=== PATIENT | male | born 1950 | race Caucasian/White ===

== ENCOUNTER 2017-07-01 04:11 | Inpatient (IN) | payer MEDICARE ==
[2017-07-01] MEDS ORDERED: LEVOFLOXACIN/D5W 750 MG/150 ML BAG IV ONE (04:20)
[2017-07-01] MEDS: RINGER'S SOLUTION,LACTATED 1,000 ML IV PRN ×5 (04:36→18:36)
--- NOTE | 2017-07-01 08:10 | HP ---
Chief Complaint - Chief Complaint Date of Service: 07/01/17 Time of Service: 08:05 Chief Complaint: RLQ abdominal pain History of Present Illness: Onset of RLQ abdominal pain saturday with progression. WBC 14K and CT c/w perforated appendicitis. Transferred from [place] to our facility for definitive treatment. - Patient's Past Medical History Patient History - Medical: No pertinent hx Patient History - Cardiac/Respiratory: Hyperlipidemia Patient History - Cancer: No Hx of Cancer Patient History - Surgical Procedures: T & A Patient History - Other: None - Family History Father Family History - Cardiac/Respiratory: CHF - Social History Living Situations: home Abuse History: No History of abuse Psych History: No pertinent hx Smoking Status: Former smoker Have you smoked in the past 12 months: No Do you dip or chew tobacco: No Alcohol Use: none Drug Use: none - Immunizations Immunizations Up to Date: Yes Hx Pneumococcal Vaccination: No History of Influenza Vaccine: No Review Of Systems (GEN) - Review of Systems Misc: All systems neg except as marked Immunizations: IMMUNIZATION HX Immunizations Up to Date Yes History of Influenza Vaccine No Hx Pneumococcal Vaccination No Allergies/Adverse Reactions: Allergies Allergy/AdvReac Type Severity Reaction Status Date / Time No Known Allergies Allergy Unverified 07/01/17 05:11 Home Medications: HOME MEDICATIONS Aspirin 81 mg PO DAILY 07/01/17 [Last Taken Unknown] Atorvastatin Calcium 10 mg PO DAILY 07/01/17 [Last Taken Unknown] Ibuprofen 200 mg PO DAILY 07/01/17 [Last Taken Unknown] Exam - Exam Vital Signs: Vital Signs - Last Taken Temp 37.8 C H 07/01/17 07:27 Pulse 94 07/01/17 07:27 Resp 15 07/01/17 07:27 BP 86/56 07/01/17 07:27 Pulse Ox 97 07/01/17 07:27 Constitutional: Present: Alert, Oriented x3, Cooperative, Well developed, Well nourished, No distress ENT Exam: Present: normal ENT inspection Eye Exam: bilateral eye: normal inspection Neck: Present: normal inspection Respiratory: Present: normal breath sounds, no respiratory distress, no accessory muscle use Cardiovascular/Chest: Present: regular rate, rhythm, no murmur Abdomen: Present: Normal bowel sounds, soft, other - RLQ tender Extremity: Present: normal inspection Skin Exam: Present: normal color, warm/dry Neurologic: Present: no motor/sensory deficits Eye contact: Present: cooperative Thoughts: Present: normal thought pattern Assessment/Plan - Narrative Narrative: A: Acute appendicitis, probable perforation P: Laparoscopic appendectomy. The options, risks, and benefits were reviewed fully. He seems to understand, asks appropriate questions, and desires to proceed. - Assessment/Plan (1) Acute appendicitis Problem: Acute
[2017-07-01] MEDS ORDERED: RINGER'S SOLUTION,LACTATED 1,000 ML IV ONE (08:25)
[2017-07-01] MEDS ORDERED: BUPIVACAINE HCL/EPINEPHRINE 50 ML VIAL IJ ONE ×2 (09:00)
[2017-07-01] MEDS ORDERED: MORPHINE SULFATE 2 MG/ML DISP.SYRIN IV PRN (11:26)
[2017-07-01] MEDS: metroNIDAZOLE/SODIUM CHLORIDE 500 MG/100 ML BAG IV SCH ×2 (12:05→20:07)
--- NOTE | 2017-07-01 12:14 | OR ---
Operative Report - Dictated Report Narrative: Date: 07/01/2017 Preop dx: perforated appendicitis Postop dx: same Procedure: laparoscopic appendectomy Surgeon: Cayden Arrington MD Asst surgeon: Ramy Cedillo, M3 EBL: minimal Specimen: appendix Anesthesia: GETA Drains: none Complications: none apparent Description: Pt was placed in the supine position and following the smooth induction of GETA a villatoro catheter was inserted and the abdomen was prepped and draped in a sterile fashion. All port sites were anesthetized with marcaine prior to incision. A supraumbilical incision was carried out and dissection taken down to an umbilical hernia. Contents were amputated and 5mm port inserted through the defect. The abdomen was insufflated to a pressure of 15 mmHg with carbon dioxide. Purulence was noted in the pelvis. A 12mm suprapubic and 5mm LLQ ports were inserted under direct vision. Omentum was peeled off the RLQ revealing a perforated appendix. The mesoappendix was taken down in continuity with a thunderbeat. The appendix was amputated at its base with an endoGIA. Appendix was placed in an endocatch bag and delivered through the suprapubic port. The RLQ and pelvis were copiously irrigated and the irrigant was evacuated and running clear. Hemostasis appeared to be adequate. The pneumoperitoneum was evacuated. Ports were removed. The umbilical port site was closed with a figure of eight 0-Vicryl suture. The incisions were closed with katarina. Island dressings were applied. The patient tolerated the procedure well without apparent complications and was discharged from the OR in stable condition.
[2017-07-01] MEDS: LEVOFLOXACIN/D5W 750 MG/150 ML BAG IV SCH (13:13)
[2017-07-01] MEDS: oxyCODONE HCL/ACETAMINOPHEN 1 TAB TABLET PO PRN ×2 (16:57→22:04)
[2017-07-02] MEDS: metroNIDAZOLE/SODIUM CHLORIDE 500 MG/100 ML BAG IV SCH ×3 (03:25→19:49)
[2017-07-02] MEDS: RINGER'S SOLUTION,LACTATED 1,000 ML IV PRN ×2 (03:26→19:49)
[2017-07-02] MEDS: oxyCODONE HCL/ACETAMINOPHEN 1 TAB TABLET PO PRN ×2 (08:52→16:37)
[2017-07-02] MEDS: ONDANSETRON HCL/PF 2 MG/ML VIAL IV PRN ×2 (12:42→20:44)
[2017-07-02] MEDS: LEVOFLOXACIN/D5W 750 MG/150 ML BAG IV SCH (13:51)
--- NOTE | 2017-07-02 16:32 | PN ---
Subjective - Date and Time Seen Date: 07/02/17 Time: 16:30 Subjective Narrative: "Not a good day." Little to no appetite. Pain in good control. Objective - Vitals Vitals: Last Vital Signs Temp 37.1 C 07/02/17 15:50 Pulse 79 07/02/17 15:50 Resp 20 07/02/17 15:50 BP 118/70 07/02/17 15:50 Pulse Ox 97 07/02/17 15:50 - Exam Constitutional: Present: Alert, Oriented x3, Cooperative, No distress Abdomen: Present: nondistended Assessment/Plan Plan Narrative: A: POD1 Perforated appendicitis P: Needs 24 hours more of IV abx then convert to PO. - Problems/Diagnosis (1) Acute appendicitis Problem: Resolved
[2017-07-03] MEDS: RINGER'S SOLUTION,LACTATED 1,000 ML IV PRN (03:53)
[2017-07-03] MEDS: metroNIDAZOLE/SODIUM CHLORIDE 500 MG/100 ML BAG IV SCH (03:53)
[2017-07-03 10:22] VITALS: BP 129/79
--- NOTE | 2017-07-03 12:04 | PN ---
Subjective - Date and Time Seen Date: 07/03/17 Time: 11:52 Subjective Narrative: Having diarrhea stools. Objective - Vitals Vitals: Last Vital Signs Temp 37.5 C 07/03/17 10:21 Pulse 93 07/03/17 10:21 Resp 18 07/03/17 10:21 BP 129/79 07/03/17 10:21 Pulse Ox 98 07/03/17 07:21 - Exam Constitutional: Present: Alert, Oriented x3, Cooperative, No distress Abdomen: Present: other - Some erythema below suprapubic port with penile edema. Assessment/Plan Plan Narrative: A: POD2 perforated appendicitis P: Will discharge. Short interval FU with Dr. Souza. Scripts for 7 days of levaquin and flagyl. Script for [place] for pain management. - Problems/Diagnosis (1) Acute appendicitis Problem: Resolved
--- NOTE | 2017-07-03 12:10 | DS ---
(1) Acute appendicitis Problem: Resolved Qualifiers: Acute appendicitis type: with generalized peritonitis Qualified Code(s): K35.2 - Acute appendicitis with generalized peritonitis Description of Stay: Pt was admitted from [place] with perforated appendicitis. Underwent lap appy confirming CT findings. Path confirmed the same. He was kept on 2 days of IV antibiotics and is now dismissed with short interval follow-up. Scripts for 7 days of levaquin and flagyl. Script for [place] for pain management. Pt may shower. Pt should avoid lifting > 20 lb for 1 week. Watch for signs and symptoms of infection. Procedures Performed: see notes below List Procedures: Lasparoscopic appendectomy Discharge Disposition: Home self care Disposition: Home self-care Condition: Fair Discharge Activity: No Lifting - > than 20 lb x 1 week Complete Home Medications List: Complete Home Medication List: Aspirin 81 mg PO DAILY 07/01/17 Atorvastatin Calcium 40 mg PO DAILY 07/01/17 Ibuprofen 200 mg PO DAILY 07/01/17
== END 2017-07-03 13:35 | disposition home or self-care (01) | DRG 340 ==
LOC: ER 04:11 → MS 08:12 → OBSVTOIN 08:12
PROVIDERS: ADMIT Specialist; ATTEND Specialist
PROC: 0DTJ4ZZ Resection of Appendix, Percutaneous Endoscopic Approach (ICD-10-PCS; principal; 2017-07-01 07:00)
DX: K35.2 Acute appendicitis with generalized peritonitis (principal); E78.5 Hyperlipidemia, unspecified; Z79.82 Long term (current) use of aspirin
CPT/HCPCS: 44970; 88304; 93005; J2405